=== PATIENT | male | born 1935 | race Caucasian/White ===

== ENCOUNTER 2018-06-04 12:17 | Inpatient (IN) | payer MEDICARE, BC ==
[~2018-06-04] VITALS: Ht 172.7 cm; Wt 76.7 kg
[2018-06-04] MEDS ORDERED: MULT1TAB73 PO (12:32)
[2018-06-04] MEDS ORDERED: PSYLLIUM PO (12:32)
[2018-06-04] MEDS ORDERED: ZIPR20VI IM (12:32)
[2018-06-04] MEDS ORDERED: QUET25TA PO (12:32)
--- NOTE | 2018-06-04 12:46 | NUR ---
PT TO CT SCAN.
--- NOTE | 2018-06-04 13:19 | NUR ---
MSE COMPLETED, SBAR REPORT TO [facility]. PT TO [facility] VIA W/C. MRSA NARES ORDERED AND SENT.
--- NOTE | 2018-06-04 13:30 | NUR ---
Received pt from ER, alert, awake oriented to self. Pt is soft spoken, slightly hard of hearing. On RA, no shortness of breath noted. Abdomen soft, non tender. RLE edema about 2+. No c/o pain. Offered to toilet but refused. No noted skin breakdown. Will continue to monitor.
[2018-06-04] MEDS ORDERED: MAG HYDROX/AL HYDROX/SIMETH 30 ML LIQUID UDC PO PRN (13:45)
[2018-06-04] MEDS ORDERED: MAGNESIUM HYDROXIDE 30 ML LIQUID UDC PO PRN (13:45)
--- NOTE | 2018-06-04 14:30 | NUR ---
Frequently gets OOB and walks. Walker offered for safety. Bed alarm on. will continue to monitor.
[2018-06-04] MEDS ORDERED: ONDANSETRON ODT 4 MG TAB.RAPDIS SL PRN (15:45)
[2018-06-04 16:00] VITALS: BP 160/87
--- NOTE | 2018-06-04 17:31 | NUR ---
Up in mindy chair for dinner. Able to feed self. Will continue to monitor.
--- NOTE | 2018-06-04 18:53 | NUR ---
Pt is verbally aggressive and uses foul language when agitated. Curses when upset. Will continue to monitor.
--- NOTE | 2018-06-04 18:55 | NUR ---
Spoke with daughter Lizette and requested to bring Advance Directive and stated will bring tomorrow 06/05/18.
[2018-06-04 20:00] VITALS: BP 192/107
[2018-06-04] MEDS: QUETIAPINE FUMARATE 25 MG TABLET PO SCH (20:12)
--- NOTE | 2018-06-04 20:12 | NUR ---
GPS/NSG Vital signs indicated patient had an elevated B/P, after rechecking B/P remained elevated, physician contacted and medication administered as ordered. Will continue to monitor Q shift and PRN as well as document medication outcome.
[2018-06-04] MEDS ORDERED: CLONIDINE HCL 0.1 MG TABLET PO ONE (20:15)
[2018-06-04] MEDS ORDERED: CLONIDINE HCL 0.1 MG TABLET PO PRN (20:15)
--- NOTE | 2018-06-04 22:07 | NUR ---
GPS: B/P was re-checked as follows: 149/79; HR 73. Pt. in no form of distress noted.
[2018-06-05 06:45] LABS: BASOPHILS % (AUTO) 0.5 % (0.0-2.0); EOSINOPHILS # (AUTO) 0.1 K/uL (0.0-0.7); EOSINOPHILS % (AUTO) 1.2 % (0.0-7.0); HEMATOCRIT 40.3 % (36.7-47.1); HEMOGLOBIN 13.9 g/dL (12.5-16.3); LYMPHOCYTES # (AUTO) 1.4 K/uL (20.0-40.0); LYMPHOCYTES % (AUTO) 20.1 % (20.5-51.5); MEAN CORPUSCULAR HEMOGLOBIN 29.9 uug (23.8-33.4); MEAN CORPUSCULAR HGB CONC 35 g/dL (32.5-36.3); MEAN CORPUSCULAR VOLUME 86.8 fL (73.0-96.2); MONOCYTES # (AUTO) 0.6 K/uL (2.0-10.0); MONOCYTES % (AUTO) 8.8 % (0.0-11.0); NEUTROPHILS # (AUTO) 4.7 K/uL (1.8-8.9); NEUTROPHILS % (AUTO) 69.4 % (38.5-71.5); PLATELET COUNT (AUTO) 181 K/uL (152-348); RED BLOOD CELL COUNT(AUTO) 4.65 MIL/uL (4.06-5.63); WHITE BLOOD COUNT (AUTO) 6.8 K/uL (3.6-10.2)
[2018-06-05 07:00] LABS: ALANINE AMINOTRANSFERASE 13 U/L (16-63); ALKALINE PHOSPHATASE 69 U/L (50-136); ASPARTATE AMINOTRANSFERASE 17 U/L (15-37); BILIRUBIN,TOTAL 0.8 mg/dL (0.2-1.0); CARBON DIOXIDE 29 mmol/L (21-32); CHLORIDE 105 mmol/L (98-107); CREATININE 1.1 mg/dL (0.6-1.3); GLUCOSE 91 mg/dL (74-106); POTASSIUM 3.7 mmol/L (3.5-5.1); TOTAL PROTEIN, SERUM 6.7 g/dL (6.4-8.2); UREA NITROGEN, BLOOD 16 mg/dL (7-18)
[2018-06-05 07:15] LABS: THYROID STIMULATING HORMONE 1.968 mIU/mL (0.358-3.740)
[2018-06-05 07:30] VITALS: BP 168/86
[2018-06-05] MEDS: QUETIAPINE FUMARATE 25 MG TABLET PO PRN (07:50)
[2018-06-05] MEDS: MULTIVITAMINS,THERAPEUTIC TABLET PO SCH (09:00)
[2018-06-05] MEDS ORDERED: Medication Not On Formulary EA (Multivitamins (Multivitamin) 1 EACH) PO SCH (09:00)
[2018-06-05] MEDS: LISINOPRIL 10 MG TABLET PO SCH ×2 (11:16→20:03)
[2018-06-05 16:48] VITALS: BP 133/65
[2018-06-05] MEDS: DIVALPROEX SPRINKLE 125 MG CAP.SPRINK PO SCH (20:03)
[2018-06-05] MEDS: QUETIAPINE FUMARATE 25 MG TABLET PO SCH (20:03)
[2018-06-05 20:57] VITALS: BP 121/71
[2018-06-05] MEDS: ZOLPIDEM 5 MG TABLET PO PRN (22:34)
[2018-06-06] MEDS: QUETIAPINE FUMARATE 25 MG TABLET PO PRN ×4 (03:45→16:16)
--- NOTE | 2018-06-06 03:45 | NUR ---
GPS: Pt. is awake,restless and agitated. Confused and disoriented. Easily agitated when approached by staff and when care is being rendered. Pt.had 1 episode of loose stool and was combative/uncooperative during incontinence care. Pt.also has poor safety awareness. Keeps attempting to climb out of bed. Difficult to re-direct. Gets verbally abusive to staff. Seroquel 12.5mg given for anxiety/agitation and taken after numerous attempts by staff. Staff at pt's bedside for safety. Will continue to monitor behavior for further escalation of behavior.
[2018-06-06 08:00] VITALS: BP 131/82
[2018-06-06] MEDS: DIVALPROEX SPRINKLE 125 MG CAP.SPRINK PO SCH ×3 (08:51→20:15)
[2018-06-06] MEDS: MULTIVITAMINS,THERAPEUTIC TABLET PO SCH (08:51)
[2018-06-06] MEDS: LISINOPRIL 10 MG TABLET PO SCH ×2 (08:56→20:15)
[2018-06-06 16:34] VITALS: BP 119/73
[2018-06-06 20:00] VITALS: BP 121/85
[2018-06-06] MEDS ORDERED: QUETIAPINE FUMARATE 25 MG TABLET PO SCH (21:00)
[2018-06-06] MEDS: ZOLPIDEM 5 MG TABLET PO PRN (22:48)
[2018-06-07 08:01] VITALS: BP 137/68
[2018-06-07] MEDS: MULTIVITAMINS,THERAPEUTIC TABLET PO SCH (08:31)
[2018-06-07] MEDS: QUETIAPINE FUMARATE 25 MG TABLET PO PRN ×2 (08:32→15:54)
[2018-06-07] MEDS: DIVALPROEX SPRINKLE 125 MG CAP.SPRINK PO SCH ×3 (08:32→21:15)
[2018-06-07] MEDS: LISINOPRIL 10 MG TABLET PO SCH ×2 (08:35→20:26)
--- NOTE | 2018-06-07 10:16 | NUR ---
Firearms Report: Roller Skates Assembler completed and submitted [employer] report for 5150 DTO/GD certifications.
[2018-06-07] MEDS: ACETAMINOPHEN 325 MG TABLET PO PRN (15:54)
--- NOTE | 2018-06-07 16:22 | NUR ---
Initial Discharge Instructions: The patient currently resides at home with his daughter [[address] [place] [address]; [phone]]. SW culinary intern spoke with pt's daughter, Lizette ([phone]) who states that the patient would benefit from locked SNF because the patient wanders, is confused and irritable. SW Home Supervisor and U SW will continue to collaborate with interdisciplinary team to ensure safe and proper discharge planning.
[2018-06-07 17:07] VITALS: BP 90/51
[2018-06-07 20:25] VITALS: BP 105/51
[2018-06-07] MEDS: QUETIAPINE FUMARATE 25 MG TABLET PO SCH (21:11)
[2018-06-08] MEDS: ZOLPIDEM 5 MG TABLET PO PRN (00:38)
[2018-06-08 07:30] VITALS: BP 139/82
[2018-06-08] MEDS: ACETAMINOPHEN 325 MG TABLET PO PRN ×2 (07:43→16:00)
[2018-06-08] MEDS: QUETIAPINE FUMARATE 25 MG TABLET PO PRN ×2 (07:44→16:00)
[2018-06-08] MEDS: DIVALPROEX SPRINKLE 125 MG CAP.SPRINK PO SCH ×3 (09:01→20:04)
[2018-06-08] MEDS: LISINOPRIL 10 MG TABLET PO SCH ×2 (09:02→20:04)
[2018-06-08] MEDS: MULTIVITAMINS,THERAPEUTIC TABLET PO SCH (09:02)
[2018-06-08 16:49] VITALS: BP 115/74
--- NOTE | 2018-06-08 18:39 | NUR ---
GPS: Nursing Notes: Bladder Scan: Per charge nurse, scanned patient's bladder 117ml, denies any pain or discomfort, V/S WNL, endorsed to incoming shift, continue to monitor patient, continue with treatment plan.
[2018-06-08] MEDS: QUETIAPINE FUMARATE 25 MG TABLET PO SCH (20:03)
[2018-06-08 20:37] VITALS: BP 121/65
[2018-06-09] MEDS: QUETIAPINE FUMARATE 25 MG TABLET PO PRN ×2 (05:33→21:40)
--- NOTE | 2018-06-09 05:35 | NUR ---
GPS: Pt.is restless,angry and easily agitated when being re-directed and approached. Confused,disoriented and with poor insight to present situation. Yells at times seeking attention and for no reason. Ambulated to the bathroom x3 during the night with adequate urine output. Denied bladder discomfort nor any form of discomfort at this time. Refused Seroquel 12.5mg PO for anxiety/agitation despite numerous attempts by staff. 1:1 sitter at bedside for safety. Will continue to monitor behavior for further escalation.
[2018-06-09 07:30] VITALS: BP_SYST 112; BP_SYST 130; BP_DIAS 61; BP_DIAS 72
[2018-06-09 07:38] LABS: CARBON DIOXIDE 29 mmol/L (21-32); CHLORIDE 104 mmol/L (98-107); CREATININE 1.4 mg/dL (0.6-1.3); GLUCOSE 86 mg/dL (74-106); POTASSIUM 3.5 mmol/L (3.5-5.1); UREA NITROGEN, BLOOD 29 mg/dL (7-18)
[2018-06-09] MEDS: DIVALPROEX SPRINKLE 125 MG CAP.SPRINK PO SCH ×3 (10:34→20:36)
[2018-06-09] MEDS: QUETIAPINE FUMARATE 25 MG TABLET PO SCH ×2 (10:36→12:46)
[2018-06-09] MEDS: LISINOPRIL 10 MG TABLET PO SCH ×2 (10:36→20:37)
[2018-06-09] MEDS: MULTIVITAMINS,THERAPEUTIC TABLET PO SCH (10:39)
[2018-06-09 16:00] VITALS: BP 92/49
[2018-06-09 20:00] VITALS: BP 124/64
--- NOTE | 2018-06-09 20:00 | NUR ---
RECEIVED PATIENT IN HIS ROOM IN BED, HE IS NOTED AWAKE A/O X 1 CONTINUE ON 1:1 SUPERVISION FOR SAFETY, PATIENT IS LEGALLY BLIND. HE IS NOTED CONFUSED, DISORGANIZED, IMPAIRED INSIGHT AND JUDGMENT TO THE REASON FOR HIS ADMISSION TO MHU. SAFETY IS EMPHASIS. WILL CONTINUE TO MONITOR.
[2018-06-09] MEDS ORDERED: QUETIAPINE FUMARATE 25 MG TABLET PO SCH (21:00)
--- NOTE | 2018-06-09 21:40 | NUR ---
PATIENT NOTED IRRITABLE, BANGING THE TABLE, YELLING AND AGITATED. SEROQUEL 12.5MG PO PRN WAS GIVEN FOR AGITATION. WILL CONTINUE TO MONITOR 1:1.
--- NOTE | 2018-06-09 22:45 | NUR ---
PATIENT CONTINUE RESTLESS, IRRITABLE, YELLING. MUTIPLE REDIRECTION GIVEN. AMBIEN 5MG PO PRN WAS GIVEN FOR INSOMNIA. HE WILL CONTINUE ON 1:1 SUPERVISION.
[2018-06-09] MEDS: ZOLPIDEM 5 MG TABLET PO PRN (22:48)
--- NOTE | 2018-06-10 01:40 | NUR ---
AMBIEN 5MG POP RN WAS NOT EFFECTIVE. PATIENT CONTINUE AWAKE RESTLESS, YELLING A TIMES; HOWEVER, LESS AGITATED. SEROQUEL 12.5MG PO PRN WAS GIVEN. HE WILL CONTINUE ON 1:1 SUPERVISION.
[2018-06-10] MEDS: QUETIAPINE FUMARATE 25 MG TABLET PO PRN (01:47)
--- NOTE | 2018-06-10 06:51 | NUR ---
PATIENT SLEPT FOR APPROX 2.00 HRS THROUGH THE NIGHT. RESTLESS THROUGH THE NIGHT; HOWEVER, HE IS CURRENTLY SLEEPING COMFORTABLE. CONTINUE COMPLIANT WITH MEDICATION REGIMENT.
[2018-06-10] MEDS: DIVALPROEX SPRINKLE 125 MG CAP.SPRINK PO SCH ×3 (08:30→20:31)
[2018-06-10] MEDS: MULTIVITAMINS,THERAPEUTIC TABLET PO SCH (08:32)
[2018-06-10] MEDS: LISINOPRIL 10 MG TABLET PO SCH ×2 (08:32→20:31)
[2018-06-10] MEDS: QUETIAPINE FUMARATE 25 MG TABLET PO SCH ×3 (08:33→20:30)
[2018-06-10 16:00] VITALS: BP 106/45
[2018-06-10 20:34] VITALS: BP 117/56
[2018-06-10] MEDS: ZOLPIDEM 5 MG TABLET PO PRN (22:13)
[2018-06-11] MEDS: QUETIAPINE FUMARATE 25 MG TABLET PO PRN (00:21)
--- NOTE | 2018-06-11 06:01 | NUR ---
GPS: Remain uncooperative with care, slept 3:30 hrs through the night after sleepng medication given.continue on 1:1 sitter @ bedside for safety. continue monitoring for safety.
[2018-06-11 07:30] VITALS: BP 129/48
[2018-06-11] MEDS: MULTIVITAMINS,THERAPEUTIC TABLET PO SCH (08:19)
[2018-06-11] MEDS: QUETIAPINE FUMARATE 25 MG TABLET PO SCH ×3 (08:20→21:09)
[2018-06-11] MEDS: LISINOPRIL 10 MG TABLET PO SCH ×2 (08:20→21:00)
[2018-06-11] MEDS: DIVALPROEX SPRINKLE 125 MG CAP.SPRINK PO SCH ×3 (08:20→21:09)
[2018-06-11 15:51] VITALS: BP 106/63
--- NOTE | 2018-06-11 17:45 | NUR ---
G[ps/Back Feeder Plywood Layup Line- Assisted to shower this morning ,needed mod. asssit, prompting and encouragement needed. Yells from time to time, needing redirections. Patient's prescription eye glasses was found. Had short naps in between this pm. Toileted voided x3, also had large amount of formed stools, assisted with his hygiene. Attended his group therapy, had been quiet, eyes closed. Fed self after set up, occ. hand to mouth feedings. Daughter in to visit.stayed up on his mindy-chair.Continue to monitor safety, unsteady gait ,poor vision.
--- NOTE | 2018-06-11 18:39 | NUR ---
Gps/Siebel Consultant- Ambulated with front wheel walker, slow initiating tasks, needing verbal cueing. Daughter visiting.
[2018-06-11 20:00] VITALS: BP 105/59
[2018-06-11] MEDS ORDERED: MIRTAZAPINE 15 MG TABLET PO SCH (21:00)
[2018-06-12] MEDS: ACETAMINOPHEN 325 MG TABLET PO PRN (01:22)
[2018-06-12] MEDS: ZOLPIDEM 5 MG TABLET PO PRN ×2 (01:22→22:10)
[2018-06-12 07:08] LABS: ALANINE AMINOTRANSFERASE 48 U/L (16-63); ASPARTATE AMINOTRANSFERASE 33 U/L (15-37); VALPROIC ACID 60 ug/mL (50-100)
[2018-06-12 08:11] VITALS: BP 125/58
[2018-06-12] MEDS: MULTIVITAMINS,THERAPEUTIC TABLET PO SCH (08:20)
[2018-06-12] MEDS: LISINOPRIL 10 MG TABLET PO SCH ×2 (08:21→21:16)
[2018-06-12] MEDS: DIVALPROEX SPRINKLE 125 MG CAP.SPRINK PO SCH ×3 (08:21→21:15)
[2018-06-12] MEDS: QUETIAPINE FUMARATE 25 MG TABLET PO SCH ×3 (08:21→21:15)
--- NOTE | 2018-06-12 11:45 | NUR ---
Gps/Mechanical Assembly Technician-Patient was in the activity room on his mindy- chair , all of a sudden patient started to yell, banging his table, so agitated, difficulty redirecting patient. Confused, speech incoherent. Taken back to his room, called his step daughter Lizette left message. Remains up on his chair, threw box of kleenex on the floor. Offered his lunch tray, refused to eat. Kept reorienting patient to time and place. Fluids offered, refused. Safety continue to emphasized.
[2018-06-12 16:00] VITALS: BP 112/70
[2018-06-12 19:36] VITALS: BP 148/84
[2018-06-12] MEDS: MIRTAZAPINE 15 MG TABLET PO SCH (21:16)
--- NOTE | 2018-06-13 05:37 | NUR ---
Pt HAS BEEN SLEEPING POORLY FOR THE LAST 2 NIGHTS. GIVEN PO PRN MEDS FOR SLEEP BUT ARE NOT EFFECTIVE. Pt IS NOTED HAVING VISUAL HALLUCINATIONS IN THE MIDDLE OF THE NIGHT, RESTLESS, YELLING AND SCREAMING AT TIMES, REQUIRES MULTIPLE REDIRECTION AND PROMPTING THROUGHOUT THE SHIFT. 1:1 SITTER NEXT TO Pt FOR SAFETY. WILL ENDORSE TO DAY SHIFT Pt BEHAVIOR. NURSING STAFF WILL CONTINUE TO MONITOR Pt CLOSELY AND FOLLOW PLAN OF CARE.
[2018-06-13 07:30] VITALS: BP 155/73
[2018-06-13] MEDS: MULTIVITAMINS,THERAPEUTIC TABLET PO SCH (08:41)
[2018-06-13] MEDS: DIVALPROEX SPRINKLE 125 MG CAP.SPRINK PO SCH ×3 (08:41→20:51)
[2018-06-13] MEDS: LISINOPRIL 10 MG TABLET PO SCH ×2 (08:42→20:06)
[2018-06-13] MEDS: QUETIAPINE FUMARATE 25 MG TABLET PO SCH ×3 (08:42→20:06)
[2018-06-13 11:07] LABS: BASOPHILS # (AUTO) 0.1 K/uL (0.0-8.0); BASOPHILS % (AUTO) 0.8 % (0.0-2.0); EOSINOPHILS # (AUTO) 0.1 K/uL (0.0-0.7); HEMATOCRIT 44.3 % (36.7-47.1); HEMOGLOBIN 14.6 g/dL (12.5-16.3); LYMPHOCYTES # (AUTO) 1.3 K/uL (20.0-40.0); LYMPHOCYTES % (AUTO) 14.4 % (20.5-51.5); MEAN CORPUSCULAR HGB CONC 33 g/dL (32.5-36.3); MEAN CORPUSCULAR VOLUME 90.6 fL (73.0-96.2); MONOCYTES # (AUTO) 0.8 K/uL (2.0-10.0); MONOCYTES % (AUTO) 8.9 % (0.0-11.0); NEUTROPHILS # (AUTO) 6.8 K/uL (1.8-8.9); NEUTROPHILS % (AUTO) 74.9 % (38.5-71.5); PLATELET COUNT (AUTO) 185 K/uL (152-348); RED BLOOD CELL COUNT(AUTO) 4.88 MIL/uL (4.06-5.63)
[2018-06-13 11:13] LABS: CARBON DIOXIDE 32 mmol/L (21-32); CHLORIDE 105 mmol/L (98-107); CREATININE 1.4 mg/dL (0.6-1.3); GLUCOSE 88 mg/dL (74-106); POTASSIUM 4.2 mmol/L (3.5-5.1); UREA NITROGEN, BLOOD 25 mg/dL (7-18)
[2018-06-13 11:24] LABS: ALANINE AMINOTRANSFERASE 51 U/L (16-63); ALKALINE PHOSPHATASE 67 U/L (50-136); ASPARTATE AMINOTRANSFERASE 30 U/L (15-37); BILIRUBIN,TOTAL 0.4 mg/dL (0.2-1.0); TOTAL PROTEIN, SERUM 7.1 g/dL (6.4-8.2)
[2018-06-13 15:38] VITALS: BP 149/78
[2018-06-13] MEDS: QUETIAPINE FUMARATE 25 MG TABLET PO PRN (15:48)
[2018-06-13 17:22] LABS: *BILIRUBIN,URIN NEGATIVE (NEGATIVE); *BLOOD, URINE NEGATIVE (NEGATIVE); *CLARITY,URINE CLEAR (CLEAR); *COLOR,URINE YELLOW (YELLOW); *KETONES,URINE TRACE (NEGATIVE); *PROTEIN,URINE NEGATIVE (NEGATIVE); *UROBILINOGEN,URINE 0.2 E.U./dl (NORMAL); LEUKOCYTE ESTERASE ,URINE NEGATIVE (NEGATIVE); NITRITE, URINE NEGATIVE (NEGATIVE); UGLUCOSE NEGATIVE (NEGATIVE)
[2018-06-13 17:36] LABS: BACTERIA,URINE FEW /HPF (NONE SEEN); RBC,URINE NONE SEEN /HPF (0-3); SQUAMOUS EPITHELIAL CELL,UR FEW /HPF (NONE SEEN); WBC,URINE 0-3 /HPF (0-3)
[2018-06-13] MEDS ORDERED: Z GUARD REMEDY PASTE 57 GM TUBE TOP PRN (18:00)
[2018-06-13 19:40] VITALS: BP 99/67
[2018-06-13 20:05] VITALS: BP 111/63
[2018-06-13] MEDS: MIRTAZAPINE 15 MG TABLET PO SCH (20:06)
[2018-06-13] MEDS: ZOLPIDEM 5 MG TABLET PO PRN (23:20)
[2018-06-14 07:01] LABS: BASOPHILS # (AUTO) 0.1 K/uL (0.0-8.0); BASOPHILS % (AUTO) 0.9 % (0.0-2.0); EOSINOPHILS # (AUTO) 0.2 K/uL (0.0-0.7); EOSINOPHILS % (AUTO) 2.1 % (0.0-7.0); HEMATOCRIT 42.4 % (36.7-47.1); HEMOGLOBIN 14.5 g/dL (12.5-16.3); LYMPHOCYTES # (AUTO) 1.7 K/uL (20.0-40.0); LYMPHOCYTES % (AUTO) 20.7 % (20.5-51.5); MEAN CORPUSCULAR HEMOGLOBIN 30.5 uug (23.8-33.4); MEAN CORPUSCULAR HGB CONC 34 g/dL (32.5-36.3); MEAN CORPUSCULAR VOLUME 89.3 fL (73.0-96.2); MONOCYTES # (AUTO) 0.7 K/uL (2.0-10.0); MONOCYTES % (AUTO) 8.9 % (0.0-11.0); NEUTROPHILS # (AUTO) 5.5 K/uL (1.8-8.9); NEUTROPHILS % (AUTO) 67.4 % (38.5-71.5); PLATELET COUNT (AUTO) 174 K/uL (152-348); RED BLOOD CELL COUNT(AUTO) 4.74 MIL/uL (4.06-5.63); WHITE BLOOD COUNT (AUTO) 8.2 K/uL (3.6-10.2)
[2018-06-14 07:13] LABS: *CREATININE,URINE 125.5 mg/dL (30-125); *URINE TOTAL PROTEIN RANDOM 29.7 mg/dL (<150/24HR)
[2018-06-14 07:45] VITALS: BP 131/63
[2018-06-14 08:29] VITALS: BP 131/63
[2018-06-14] MEDS: QUETIAPINE FUMARATE 25 MG TABLET PO SCH ×2 (08:29→12:13)
[2018-06-14] MEDS: MULTIVITAMINS,THERAPEUTIC TABLET PO SCH (08:29)
[2018-06-14] MEDS: LISINOPRIL 10 MG TABLET PO SCH (08:29)
[2018-06-14] MEDS: DIVALPROEX SPRINKLE 125 MG CAP.SPRINK PO SCH ×2 (08:29→12:13)
--- NOTE | 2018-06-14 08:50 | NUR ---
Discharge Note: Patient will be discharged to [facility] [[address] [place] [address]; ] and transportation will be provided by ambulance at 11:00pm. Please arrange ambulance transportation for this patient. Confirmation of acceptance at facility was provided by albert Lopez, at the facility who states they are ready to accept the patient today. athletic turf worker has called and spoke with patient daughter, Lizette [[phone]], who is aware and agreeable with discharge plan. Patient is alert and oriented x1 and denies any SI/HI. Patient was briefed on discharge and agreeable with plan. Patient will follow-up with Dr. Peters (hvac technician residential) and Dr. Jason (psychiatrist) at the facility. Patient was given outpatient mental health resources including [facility] Crisis Line [ ], [facility]onsec[facility] [ ], and the National Suicide Prevention Lifeline [ ].
--- NOTE | 2018-06-14 13:30 | NUR ---
GPS: Nursing Notes: Discharge Notes: Patient is awake and responding to his name, disoriented, confused, forgetful at times, cooperative with nursing care, compliant with his medications, needs assistance with ADL's, denies SI/HI, denies AH/VH, denies any pain or discomfort, denies any SOB. Discharge to [facility]Note 3] [place] [address] [place] [address] , report given to nurse, Haydee RN supervisor sleeping bag department, transported to facility via ambulance, took all his belongings with him. Patient will follow-up with Dr. Peters (vault worker) and Dr. Jason (psychiatrist) at the facility. youth accommodation support worker has called and spoke with patient's daughter, Lizette , who is aware and agreeable with discharge plan. Patient was given outpatient mental health resources including [facility] Crisis Line [ ], [facility]on[facility] [ ], and the National Suicide Prevention Lifeline [ ].
== END 2018-06-14 13:30 | DRG 885 ==
LOC: ER 12:17 → GPS 12:55
PROVIDERS: ADMIT Psychiatry & Neurology Psychiatry; ATTEND Nurse Practitioner Acute Care
DX: F39 Unspecified mood [affective] disorder (principal); N17.0 Acute kidney failure with tubular necrosis; F03.91 Unspecified dementia, unspecified severity, with behavioral disturbance; E44.1 Mild protein-calorie malnutrition; G89.29 Other chronic pain; M54.9 Dorsalgia, unspecified; M19.90 Unspecified osteoarthritis, unspecified site; T50.995A Adverse effect of other drugs, medicaments and biological substances, initial encounter; Y92.230 Patient room in hospital as the place of occurrence of the external cause; H54.8 Legal blindness, as defined in USA; Z68.25 Body mass index [BMI] 25.0-25.9, adult; M17.11 Unilateral primary osteoarthritis, right knee
CPT/HCPCS: 36415; 70450; 73560; 80164; 84156; 84300; 84443; 84450; 84460; 85025; 85049; 87086; 97110; 97112; 97116; 97530; A4663

== ENCOUNTER 2018-06-17 07:40 | Inpatient (IN) | payer MEDICARE, BC ==
[~2018-06-17] VITALS: Ht 172.7 cm; Wt 77.1 kg
[2018-06-17 01:10] VITALS: BP 154/86
[~2018-06-17 07:40] MED LIST: MULT1TAB73 PO; PSYLLIUM PO
[2018-06-17] MEDS ORDERED: MIRT15TA PO (07:58)
[2018-06-17] MEDS ORDERED: NA P133E RC (07:58)
[2018-06-17] MEDS ORDERED: MULT-213 PO (07:58)
[2018-06-17] MEDS ORDERED: CRAN425C6 PO (07:58)
[2018-06-17] MEDS ORDERED: CLON0.1T14 PO (07:58)
[2018-06-17] MEDS ORDERED: BISA10SU61 RC (07:58)
[2018-06-17] MEDS ORDERED: LISI10TA5 PO (07:58)
[2018-06-17] MEDS ORDERED: DOCU-141 PO (07:58)
[2018-06-17] MEDS ORDERED: MAGN400O6 PO (07:58)
[2018-06-17] MEDS ORDERED: ONDA4TAB5 SL (07:58)
[2018-06-17] MEDS ORDERED: MAG355OR18 PO (07:58)
[2018-06-17] MEDS ORDERED: QUET25TA PO ×3 (07:58)
[2018-06-17] MEDS ORDERED: DIVA125C2 PO ×2 (07:58)
[2018-06-17] MEDS ORDERED: ACET-2154 PO (07:58)
[2018-06-17 08:03] LABS: BASOPHILS # (AUTO) 0.1 K/uL (0.0-8.0); BASOPHILS % (AUTO) 0.7 % (0.0-2.0); EOSINOPHILS % (AUTO) 0.5 % (0.0-7.0); HEMATOCRIT 45.9 % (36.7-47.1); HEMOGLOBIN 15.7 g/dL (12.5-16.3); LYMPHOCYTES # (AUTO) 1.1 K/uL (20.0-40.0); LYMPHOCYTES % (AUTO) 11.8 % (20.5-51.5); MEAN CORPUSCULAR HEMOGLOBIN 30.5 uug (23.8-33.4); MEAN CORPUSCULAR HGB CONC 34 g/dL (32.5-36.3); MEAN CORPUSCULAR VOLUME 89.5 fL (73.0-96.2); MONOCYTES % (AUTO) 10.4 % (0.0-11.0); NEUTROPHILS # (AUTO) 7.4 K/uL (1.8-8.9); NEUTROPHILS % (AUTO) 76.6 % (38.5-71.5); PLATELET COUNT (AUTO) 168 K/uL (152-348); RED BLOOD CELL COUNT(AUTO) 5.14 MIL/uL (4.06-5.63); WHITE BLOOD COUNT (AUTO) 9.6 K/uL (3.6-10.2)
[2018-06-17 08:11] LABS: CARBON DIOXIDE 27 mmol/L (21-32); CHLORIDE 103 mmol/L (98-107); CREATININE 2.4 mg/dL (0.6-1.3); GLUCOSE 103 mg/dL (74-106); POTASSIUM 4.8 mmol/L (3.5-5.1); UREA NITROGEN, BLOOD 63 mg/dL (7-18)
[2018-06-17 08:12] LABS: ETHANOL < 3 MG/DL (0-0)
[2018-06-17 08:25] LABS: ALANINE AMINOTRANSFERASE 50 U/L (16-63); ALKALINE PHOSPHATASE 78 U/L (50-136); ASPARTATE AMINOTRANSFERASE 30 U/L (15-37); BILIRUBIN,DIRECT 0.2 mg/dL (0.0-0.2); BILIRUBIN,TOTAL 0.7 mg/dL (0.2-1.0); TOTAL PROTEIN, SERUM 8.1 g/dL (6.4-8.2); VALPROIC ACID 51 ug/mL (50-100)
[2018-06-17] MEDS ORDERED: LORAZEPAM 2 MG/1 ML VIAL IM ONE (08:30)
[2018-06-17] MEDS ORDERED: HALOPERIDOL LACTATE 5 MG/1 ML VIAL IM ONE (08:30)
[2018-06-17] MEDS ORDERED: LORAZEPAM 2 MG/1 ML VIAL ONE (08:33)
[2018-06-17] MEDS ORDERED: HALOPERIDOL LACTATE 5 MG/1 ML VIAL ONE (08:33)
[2018-06-17] MEDS ORDERED: IV NORMAL SALINE 1000 ML BAG IV ONE (09:00)
--- NOTE | 2018-06-17 09:30 | NUR ---
PT TRANSFERED TO FLOOR IN STABLE CONDITION. PT REMAINED CALM THE WHOLE ER STAY. OFFERED PT BF, PT REFUSED.
[2018-06-17] MEDS ORDERED: ONDANSETRON 4 MG/2 ML VIAL IV PRN (10:00)
[2018-06-17] MEDS ORDERED: QUETIAPINE FUMARATE 25 MG TABLET PO PRN (10:00)
[2018-06-17] MEDS ORDERED: Z GUARD REMEDY PASTE 57 GM TUBE TOP PRN (10:00)
[2018-06-17] MEDS ORDERED: ACETAMINOPHEN 325 MG TABLET PO PRN (10:00)
--- NOTE | 2018-06-17 10:30 | NUR ---
82 year old male pt received from er via [facility] in stable condition to room 225 .v/s are stable sitter at bed side
[2018-06-17] MEDS: QUETIAPINE FUMARATE 25 MG TABLET PO SCH ×3 (10:34→21:07)
[2018-06-17] MEDS: IV NS 1000 ML 1,000 ML IV PRN ×2 (10:47→23:10)
[2018-06-17] MEDS: CLONIDINE HCL 0.1 MG TABLET PO SCH ×2 (14:04→21:08)
[2018-06-17 16:19] VITALS: BP 97/50
[2018-06-17] MEDS: DIVALPROEX SPRINKLE 125 MG CAP.SPRINK PO SCH ×2 (16:25→21:07)
[2018-06-17 21:00] VITALS: BP 125/55
[2018-06-17] MEDS: MIRTAZAPINE 15 MG TABLET PO SCH (21:07)
[2018-06-18 05:57] VITALS: BP 152/64
[2018-06-18] MEDS: CLONIDINE HCL 0.1 MG TABLET PO SCH ×3 (06:00→21:20)
[2018-06-18 06:38] LABS: BASOPHILS % (AUTO) 0.8 % (0.0-2.0); EOSINOPHILS # (AUTO) 0.1 K/uL (0.0-0.7); LYMPHOCYTES % (AUTO) 21.5 % (20.5-51.5); MONOCYTES # (AUTO) 0.6 K/uL (2.0-10.0)
[2018-06-18 06:51] LABS: EOSINOPHILS % (AUTO) 1.4 % (0.0-7.0); LYMPHOCYTES # (AUTO) 1.3 K/uL (20.0-40.0); MEAN CORPUSCULAR HEMOGLOBIN 30.3 uug (23.8-33.4); MEAN CORPUSCULAR HGB CONC 33 g/dL (32.5-36.3); MEAN CORPUSCULAR VOLUME 90.7 fL (73.0-96.2); MONOCYTES % (AUTO) 10.5 % (0.0-11.0); NEUTROPHILS # (AUTO) 3.9 K/uL (1.8-8.9); NEUTROPHILS % (AUTO) 65.8 % (38.5-71.5); PLATELET COUNT (AUTO) 138 K/uL (152-348); RED BLOOD CELL COUNT(AUTO) 4.42 MIL/uL (4.06-5.63)
[2018-06-18 06:53] LABS: HEMATOCRIT 40.1 % (36.7-47.1); HEMOGLOBIN 13.4 g/dL (12.5-16.3); WHITE BLOOD COUNT (AUTO) 5.9 K/uL (3.6-10.2)
[2018-06-18 07:11] LABS: ALANINE AMINOTRANSFERASE 38 U/L (16-63); ALKALINE PHOSPHATASE 62 U/L (50-136); ASPARTATE AMINOTRANSFERASE 28 U/L (15-37); BILIRUBIN,TOTAL 0.5 mg/dL (0.2-1.0); CARBON DIOXIDE 27 mmol/L (21-32); CHLORIDE 109 mmol/L (98-107); CHOLESTEROL 155 mg/dL (<200); CREATININE 1.4 mg/dL (0.6-1.3); GLUCOSE 78 mg/dL (74-106); HDL CHOLESTEROL 32 mg/dL (40-60); MAGNESIUM 2.1 mg/dL (1.8-2.4); PHOSPHOROUS 2.6 mg/dL (2.5-4.9); POTASSIUM 4.6 mmol/L (3.5-5.1); TOTAL PROTEIN, SERUM 6.1 g/dL (6.4-8.2); TRIGLYCERIDES 67 MG/DL (30-150); UREA NITROGEN, BLOOD 49 mg/dL (7-18)
[2018-06-18 07:13] LABS: CREATINE KINASE, TOTAL 219 U/L (39-308)
[2018-06-18 07:14] VITALS: BP 122/63
[2018-06-18] MEDS: DIVALPROEX SPRINKLE 125 MG CAP.SPRINK PO SCH ×3 (08:05→20:34)
[2018-06-18] MEDS: QUETIAPINE FUMARATE 25 MG TABLET PO SCH ×3 (08:06→20:33)
[2018-06-18 08:10] LABS: *BILIRUBIN,URIN NEGATIVE (NEGATIVE); *BLOOD, URINE 3+ (NEGATIVE); *CLARITY,URINE CLOUDY (CLEAR); *COLOR,URINE YELLOW (YELLOW); *KETONES,URINE TRACE (NEGATIVE); LEUKOCYTE ESTERASE ,URINE NEGATIVE (NEGATIVE); NITRITE, URINE POSITIVE (NEGATIVE); UGLUCOSE NEGATIVE (NEGATIVE)
[2018-06-18 08:12] LABS: *CREATININE,URINE 137.9 mg/dL (30-125); *URINE TOTAL PROTEIN RANDOM 36.2 mg/dL (<150/24HR)
[2018-06-18 08:46] LABS: RBC,URINE TNTC /HPF (0-3)
[2018-06-18 08:51] LABS: BACTERIA,URINE MANY /HPF (NONE SEEN)
[2018-06-18 08:52] LABS: SQUAMOUS EPITHELIAL CELL,UR FEW /HPF (NONE SEEN)
[2018-06-18] MEDS: IV NS 1000 ML 1,000 ML IV PRN (09:40)
[2018-06-18 11:45] VITALS: BP 129/57
[2018-06-18] MEDS ORDERED: LORAZEPAM 2 MG/1 ML VIAL IM ONE (13:30)
[2018-06-18] MEDS ORDERED: OLANZAPINE 10 MG VIAL IM ONE (13:30)
--- NOTE | 2018-06-18 13:47 | NUR ---
pt is very combative and yelling screaming and hitting the staff throughing stool on the staff,dr pendleton notified and orders received noted and carried out,
[2018-06-18 14:43] VITALS: BP 144/67
--- NOTE | 2018-06-18 16:43 | NUR ---
pt is still combative reorient the pt ,pt daughter at bed side
[2018-06-18] MEDS: MIRTAZAPINE 15 MG TABLET PO SCH (20:33)
[2018-06-18 20:36] VITALS: BP 149/86
[2018-06-19] MEDS: IV NS 1000 ML 1,000 ML IV PRN ×2 (00:27→17:21)
[2018-06-19 05:00] VITALS: BP 166/78
[2018-06-19] MEDS: CLONIDINE HCL 0.1 MG TABLET PO SCH ×3 (06:09→21:40)
[2018-06-19 07:12] VITALS: BP 113/64
[2018-06-19] MEDS: DIVALPROEX SPRINKLE 125 MG CAP.SPRINK PO SCH ×3 (08:04→21:30)
[2018-06-19] MEDS: QUETIAPINE FUMARATE 25 MG TABLET PO SCH ×3 (08:04→21:29)
[2018-06-19 11:30] VITALS: BP 158/80
[2018-06-19] MEDS ORDERED: LIDOCAINE 2% (UROJET) 10 ML JELLY MM PRN (12:00)
--- NOTE | 2018-06-19 13:27 | NUR ---
F/V INSERTED BY PT WAS RETAINING URINE
[2018-06-19 14:12] LABS: *BILIRUBIN,URIN NEGATIVE (NEGATIVE); *BLOOD, URINE 2+ (NEGATIVE); *CLARITY,URINE SLIGHTLY CLOUDY (CLEAR); *COLOR,URINE YELLOW (YELLOW); *KETONES,URINE 1+ (NEGATIVE); LEUKOCYTE ESTERASE ,URINE NEGATIVE (NEGATIVE); NITRITE, URINE POSITIVE (NEGATIVE); PH,URINE >=9.0 (5.0-8.0); UGLUCOSE NEGATIVE (NEGATIVE)
[2018-06-19 14:42] LABS: BACTERIA,URINE MANY /HPF (NONE SEEN); WBC,URINE 0-3 /HPF (0-3)
[2018-06-19 14:43] LABS: TRIPLE PHOSPHATE CRYSTAL,UR FEW /HPF (NONE SEEN)
--- NOTE | 2018-06-19 15:15 | NUR ---
took over care, resting in bed calmly, sitter in the room, safety measures maintained
[2018-06-19 15:21] VITALS: BP 162/81
--- NOTE | 2018-06-19 17:42 | NUR ---
took his meds, ate some of his dinner, remains calm.
--- NOTE | 2018-06-19 18:28 | NUR ---
resting quietly, sitter in the room, no distress noted, cohen cath draining julian urine, safety measures maintained
--- NOTE | 2018-06-19 19:30 | NUR ---
Received pt resting in bed. Arousable to sound and touch. 1:1 sitter at bedside for safety. IV intact and patent, IVF running. F/c in place. Pt shows no s/s of acute distress. Safety precautions and comfort measures implemented. Bed on low locked position, call light within reach. Will continue to monitor and carry out all orders.
[2018-06-19 20:29] VITALS: BP 189/61
[2018-06-19] MEDS: MIRTAZAPINE 15 MG TABLET PO SCH (21:28)
[2018-06-20] MEDS: CLONIDINE HCL 0.1 MG TABLET PO SCH ×3 (05:07→21:00)
[2018-06-20] MEDS: IV NS 1000 ML 1,000 ML IV PRN ×2 (05:15→16:28)
[2018-06-20 05:18] VITALS: BP 145/61
--- NOTE | 2018-06-20 06:37 | NUR ---
Pt slept well t/o night. Easily arousable during initial rounds. 1:1 sitter at bedside for safety. Kept pt clean and dry. IV intact ant patent, IVF running. Pt shows no s/s of acute distress. Safety precautions maintained. Call light within reach. Will endorse plan of care to day shift nurse
[2018-06-20 06:49] LABS: BASOPHILS % (AUTO) 0.3 % (0.0-2.0); EOSINOPHILS # (AUTO) 0.1 K/uL (0.0-0.7); EOSINOPHILS % (AUTO) 0.9 % (0.0-7.0); HEMATOCRIT 37.6 % (36.7-47.1); HEMOGLOBIN 12.9 g/dL (12.5-16.3); LYMPHOCYTES # (AUTO) 0.8 K/uL (20.0-40.0); LYMPHOCYTES % (AUTO) 12.7 % (20.5-51.5); MEAN CORPUSCULAR HEMOGLOBIN 30.1 uug (23.8-33.4); MEAN CORPUSCULAR HGB CONC 34 g/dL (32.5-36.3); MEAN CORPUSCULAR VOLUME 88.1 fL (73.0-96.2); MONOCYTES % (AUTO) 14.2 % (0.0-11.0); NEUTROPHILS # (AUTO) 4.8 K/uL (1.8-8.9); NEUTROPHILS % (AUTO) 71.9 % (38.5-71.5); PLATELET COUNT (AUTO) 144 K/uL (152-348); RED BLOOD CELL COUNT(AUTO) 4.27 MIL/uL (4.06-5.63); WHITE BLOOD COUNT (AUTO) 6.7 K/uL (3.6-10.2)
[2018-06-20 07:16] LABS: CARBON DIOXIDE 26 mmol/L (21-32); CHLORIDE 112 mmol/L (98-107); CREATININE 1.1 mg/dL (0.6-1.3); GLUCOSE 82 mg/dL (74-106); MAGNESIUM 1.9 mg/dL (1.8-2.4); PHOSPHOROUS 2.4 mg/dL (2.5-4.9); UREA NITROGEN, BLOOD 27 mg/dL (7-18)
[2018-06-20 07:31] VITALS: BP 142/64
[2018-06-20] MEDS: DIVALPROEX SPRINKLE 125 MG CAP.SPRINK PO SCH ×3 (08:26→21:03)
[2018-06-20] MEDS: QUETIAPINE FUMARATE 25 MG TABLET PO SCH ×3 (08:26→21:02)
--- NOTE | 2018-06-20 08:27 | NUR ---
RECEIVED PATIENT AWAKE ALERT TO SELF WITH CONFUSSION CONFUSED AND DISORIENTATION FOLLOW COMMANDS HE IS COMPLIANT WITH MEDICATIONS AND CARE REMAIN ON IVF ORDERED WITH NO S/S OF INFILTERATION ON SITE ON ROOM AIR WITH NO SHORTNESS OF BREATH AT THIS TIME WETZEL CATH WITH LIGHT TEA COLORED URINE HAS A SITTER FOR SAFETY MADE COMFORTABLE AND WILL CONTINUE TO OBSERVE PT.
--- NOTE | 2018-06-20 10:35 | NUR ---
PATIENT SEEN AND EXAMINED BY DR GARCIA AWARE OF URINE RESULTS WITH NEW ORDERS AND NOTED.
[2018-06-20 11:06] VITALS: BP 104/56
[2018-06-20] MEDS: CIPROFLOXACIN HCL 250 MG TABLET PO SCH ×2 (11:50→20:59)
--- NOTE | 2018-06-20 12:15 | NUR ---
DR KERN HERE TO SEE PATIENT STATED THAT HE IS COVERING FOR DR CONNOLLY WITH NO NEW ORDERS AT THIS TIME.
[2018-06-20 15:03] VITALS: BP 121/62
[2018-06-20] MEDS ORDERED: NEUTRA PHOS PACKET PO ONE (15:30)
--- NOTE | 2018-06-20 15:39 | NUR ---
PHOS LEVEL IS 2.3 WITH NEW REPLACEMENT ORDERS AND NOTED.
--- NOTE | 2018-06-20 18:00 | NUR ---
COMPLIANT WITH MEDICATIONS AND CARE HAS ONE ON ONE SITTER FOR SAFETY WETZEL CATH INTACT TO GRAVITY DRAINGE WITH NO HEMATURIA AT THIS TIME MADE COMFORTABLE AND WILL CONTINUE TO OBSERVE PATIENT AND PROVIDE SAFE AND THERAPEUTIC ENVIRONMENT AT ALL TIMES.
[2018-06-20 20:00] VITALS: BP 145/61
--- NOTE | 2018-06-20 20:15 | NUR ---
Pt resting in bed, arousable with sound and touch. 1:1 sitter for safety. IV intact and patent with no s/s of redness or swelling. F/C in place. No acute distress noted. Safety precautions implemented. Comfort measures provided. Call light within reach. Will continue to monitor.
[2018-06-20] MEDS ORDERED: MAGNESIUM HYDROXIDE 30 ML LIQUID UDC PO PRN (21:00)
[2018-06-20] MEDS: MIRTAZAPINE 15 MG TABLET PO SCH (21:01)
[2018-06-21] MEDS: IV NS 1000 ML 1,000 ML IV PRN (04:37)
[2018-06-21 05:33] VITALS: BP 145/61
[2018-06-21] MEDS: CLONIDINE HCL 0.1 MG TABLET PO SCH (05:41)
--- NOTE | 2018-06-21 06:35 | NUR ---
No significant changes t/o shift. Pt is confused and easily agitated. 1:1 sitter at bedside for safety. Med given for constipation x1, no BM noted on my shift. F/C in place. Kept pt clean and dry. IVF running. No acute distress noted. Safety precautions and comfort measures maintained. Call light within reach. Will endorse accordingly.
[2018-06-21 07:01] LABS: CARBON DIOXIDE 27 mmol/L (21-32); CHLORIDE 112 mmol/L (98-107); GLUCOSE 82 mg/dL (74-106); PHOSPHOROUS 2.3 mg/dL (2.5-4.9); POTASSIUM 4.1 mmol/L (3.5-5.1); UREA NITROGEN, BLOOD 25 mg/dL (7-18)
[2018-06-21] MEDS ORDERED: TAMS-3 PO (07:49)
--- NOTE | 2018-06-21 08:01 | NUR ---
NEW ORDER TO DISCHARGE PATIENT BACK TO [facility] TODAY RECEIVED AND NOTED WILL CONFIRM THAT [facility] WILL BE ABLE TO ACCOMODATE PATIENT. D/C PLANNING
[2018-06-21] MEDS: DIVALPROEX SPRINKLE 125 MG CAP.SPRINK PO SCH (08:18)
[2018-06-21] MEDS: QUETIAPINE FUMARATE 25 MG TABLET PO SCH (08:19)
[2018-06-21] MEDS: CIPROFLOXACIN HCL 250 MG TABLET PO SCH (08:19)
--- NOTE | 2018-06-21 09:00 | NUR ---
PHOS LEVEL IS 2.3 MD AWARE WITH NO NEW ORDERS AT THIS TIME.
[2018-06-21 09:06] LABS: A/G RATIO 0.9 (0.7-1.7); ALBUMIN 3.4 g/dL (2.9-4.4); ALPHA-1-GLOBULIN 0.3 g/dL (0.0-0.4); ALPHA-2-GLOBULIN 1.1 g/dL (0.4-1.0); BETA GLOBULIN 1.1 g/dL (0.7-1.3); GAMMA GLOBULIN 1.2 g/dL (0.4-1.8); GLOBULIN, TOTAL 3.7 g/dL (2.2-3.9); M-SPIKE Not Observed g/dL (Not Observed)
[2018-06-21 11:17] VITALS: BP 147/65
--- NOTE | 2018-06-21 12:00 | NUR ---
PATIENTS DAUGHTER MACARIO IS AT THE BEDSIDE AND AWARE THAT THE PATIENT WILL BE DISCHARGED BACK TO [facility] TODAY AND STATED OKAY.
--- NOTE | 2018-06-21 13:05 | NUR ---
CALLED [facility] AND REPORT GIVEN TO LEYDA FOR CONTINUING CARE PATIENT WILL BE PICKED UP ABOUT 1315 TODAY.
--- NOTE | 2018-06-21 13:39 | NUR ---
PATIENT DISCHARGED TO [facility] BY AMBULANCE WITH ALL HIS PERSONAL BELONGINGS IN SATISFACTORY CONDITION.
[2018-06-21] MEDS ORDERED: TAMSULOSIN HCL 0.4 MG CAP.SR.24H PO SCH (21:00)
== END 2018-06-21 13:40 | DRG 683 ==
LOC: ER 07:40 → MED 09:24
PROVIDERS: ADMIT Nurse Practitioner Acute Care; ATTEND Internal Medicine Nephrology
DX: N17.0 Acute kidney failure with tubular necrosis (principal); F03.91 Unspecified dementia, unspecified severity, with behavioral disturbance; N39.0 Urinary tract infection, site not specified; E46 Unspecified protein-calorie malnutrition; I13.10 Hypertensive heart and chronic kidney disease without heart failure, with stage 1 through stage 4 chronic kidney disease, or unspecified chronic kidney disease; N18.9 Chronic kidney disease, unspecified; E86.0 Dehydration; I95.9 Hypotension, unspecified; N13.9 Obstructive and reflux uropathy, unspecified; R33.9 Retention of urine, unspecified; Z68.25 Body mass index [BMI] 25.0-25.9, adult; F29 Unspecified psychosis not due to a substance or known physiological condition; N28.1 Cyst of kidney, acquired
CPT/HCPCS: 36415; 70450; 71045; 76770; 80164; 83735; 83970; 84100; 84155; 84156; 84165; 84300; 84443; 85025; 93005; 97112; 97116; 97530; A4663; G0378; G0480; J1630; J2060; J2358; J7030; J7040